=== PATIENT | male | born 1970 | race Two or more races ===

== ENCOUNTER 2022-07-17 21:07 | Emergency (ER) | payer OTHER ==
[~2022-07-17] VITALS: Ht 167.6 cm; Wt 65.0 kg
[2022-07-17 21:45] VITALS: BP 134/78
[2022-07-17] MEDS ORDERED: ALBUTEROL SULF 2.5 MG/0.5ML(0.5%) NEB SOLN NEB ONE (22:15)
[2022-07-17] MEDS ORDERED: IPRATROPIUM BROM 0.5 MG/2.5ML INH SOL NEB ONE (22:15)
[2022-07-18] MEDS ORDERED: ALBU108A14 IN (14:37)
== END 2022-07-18 04:03 | disposition left against medical advice (07) ==
LOC: ER 21:11
DX: R06.02 Shortness of breath (principal); R07.89 Other chest pain; Z53.21 Procedure and treatment not carried out due to patient leaving prior to being seen by health care provider
CPT/HCPCS: 71045; 94640; J7644

== ENCOUNTER 2022-07-18 14:21 | Emergency (ER) | payer OTHER ==
[~2022-07-18] VITALS: Ht 167.6 cm; Wt 65.0 kg
[2022-07-18] MEDS ORDERED: ALBU108A14 IN (14:37)
[2022-07-18 15:35] VITALS: BP 99/64
== END 2022-07-18 15:38 | disposition home or self-care (01) ==
LOC: ER 14:21
DX: J98.01 Acute bronchospasm (principal); F17.210 Nicotine dependence, cigarettes, uncomplicated

== ENCOUNTER 2023-05-14 20:48 | Emergency (ER) | payer OTHER ==
[~2023-05-14] VITALS: Ht 167.6 cm; Wt 69.5 kg
[~2023-05-14 20:48] MED LIST: ALBU108A14 IN
[2023-05-15 00:55] VITALS: BP 110/65; PULSE 98; TEMP 97.9
[2023-05-15] MEDS ORDERED: DexAMETHasone SOD PHOS 10MG/1ML VIAL INJ IM ONE (01:30)
[2023-05-15] MEDS ORDERED: IPRATROPIUM BROM 0.5 MG/2.5ML INH SOL NEB ONE (01:30)
[2023-05-15] MEDS ORDERED: ALBUTEROL SULF 2.5 MG/0.5ML(0.5%) NEB SOLN NEB ONE (01:30)
[2023-05-15] MEDS ORDERED: ALBUAER3 IN (01:37)
[2023-05-15] MEDS ORDERED: PRED20TA2 PO (01:37)
[2023-05-15 01:47] VITALS: RESP 20; O2SAT 94
== END 2023-05-15 02:34 | disposition home or self-care (01) ==
LOC: ER 20:48 → EDBD 20:48 → ER 05-15 02:31
DX: J45.901 Unspecified asthma with (acute) exacerbation (principal); F17.210 Nicotine dependence, cigarettes, uncomplicated
CPT/HCPCS: 93005; 94640; 96372; 99283; J1100; J7644

== ENCOUNTER 2023-06-04 03:14 | Emergency (ER) | payer OTHER ==
[~2023-06-04] VITALS: Ht 167.6 cm; Wt 65.0 kg
[~2023-06-04 03:14] MED LIST changes: +ALBUAER3 IN; +PRED20TA2 PO
[2023-06-04 03:21] VITALS: BP 136/84
[2023-06-04] MEDS ORDERED: IPRATROPIUM BROM 0.5 MG/2.5ML INH SOL NEB ONE (03:30)
[2023-06-04] MEDS ORDERED: ALBUTEROL SULF 2.5 MG/0.5ML(0.5%) NEB SOLN NEB ONE (03:30)
[2023-06-04 04:07] LABS: BUN/Creatinine Ratio 10.4 (10.0-20.0); Calcium 9.6 mg/dL (8.7-10.4); INR 1.04 (0.9-1.15); Partial Thromboplastin Time 32.3 SEC (24.5-34.5); Potassium 4.3 mmol/L (3.5-5.1); Prothrombin Time 10.9 sec (9.3-11.8)
[2023-06-04 04:09] LABS: Basophils # (auto) 0 10 ^3/uL (0-0.2); Basophils % (auto) 0.4 % (0.0-2.0); Eosinophils # (auto) 0.2 10 ^3/uL (0-0.8); Hematocrit 46.9 % (41.0-53.0); Hemoglobin 15.6 g/dL (13.5-17.5); Lymphocytes # (auto) 2.1 10 ^3/uL (0.4-5.4); Lymphocytes % (auto) 21.9 % (10.0-50.0); Mean Corpuscular Hemoglobin 28.5 pg (28.0-32.0); Mean Corpuscular Hgb Conc. 33.3 g/dL (32.0-36.0); Mean Corpuscular Volume 85.5 fL (80.0-100.0); Monocytes # (auto) 0.7 10 ^3/uL (0-1.3); Monocytes % (auto) 7.1 % (0.0-12.0); Neutrophils # (auto) 6.7 10 ^3/uL (1.6-8.6); Neutrophils % (auto) 68.6 % (37.0-80.0); Nucleated Red Blood Cells % 0.2 %; Red Blood Cells 5.49 10^6/uL (4.5-5.90); Red Cell Distribution Width 14.1 % (11.8-14.3); White Blood Cell 9.8 10^3/uL (4.4-10.8)
[2023-06-04 04:10] LABS: Bilirubin, Total 0.4 mg/dL (0.2-1.0); Total Protein 7.7 g/dL (6.4-8.2)
[2023-06-04] MEDS ORDERED: METH4PAK PO (08:54)
[2023-06-04] MEDS ORDERED: ALBUAER3 IN (08:54)
[2023-06-04 09:36] VITALS: PULSE 102; RESP 20; TEMP 98; O2SAT 97
== END 2023-06-04 09:01 | disposition home or self-care (01) ==
LOC: ER 03:14
DX: J45.901 Unspecified asthma with (acute) exacerbation (principal); J44.9 Chronic obstructive pulmonary disease, unspecified; I10 Essential (primary) hypertension; F17.210 Nicotine dependence, cigarettes, uncomplicated
CPT/HCPCS: 36415; 71045; 80053; 83880; 84484; 85025; 85379; 85610; 85730; 93005; 94640; 99285; J7644